=== PATIENT | female | born 1975 | race Caucasian/White ===

== ENCOUNTER 2017-01-02 19:27 | Emergency (ER) | payer OTHER ==
--- NOTE | 2017-01-02 20:08 | ED UPPER/LOWER EXTREMITY COMPL ---
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 PT FELT A POP WITH PAIN RADIATING TO LEFT THUMB Triage Nurses Notes Reviewed? yes Onset: Abrupt Duration: hour(s): (2), constant Timing: recent history Severity: moderate Severity Numbers: 7 Pain/Injury Location: Left: Shoulder. Method of Injury: lifting Modifying Factors: Improves With: rest. Worsens With: movement. Associated Symptoms: none : No Patient currently breastfeeds: No HPI: 41-year-old female with history of left shoulder arthroscopic surgery by Dr. 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 The patient is declining anything for pain offered. She states she is not taken anything for her symptoms at home. The pain is radiating down her arm into her thumb there was no trauma or fall no other injury. She denies any neck or back pain no chest pain or no modifying factors or associated symptoms otherwise. (BENJAMIN JAMES) Past History Travel History Traveled to [place] past 21 day No Medical History Any Pertinent Medical History? see below for history Neurological: NONE EENT: NONE Cardiovascular: HEART MURMUR Respiratory: NONE Gastrointestinal: NONE Hepatic: NONE Renal: NONE Musculoskeletal: NONE Psychiatric: NONE Endocrine: NONE Blood Disorders: NONE Cancer(s): ovarian cancer WOMEN'S ACTIVITIES ADVISER/Reproductive: NONE Tetanus Vaccine: 07/09/13 Surgical History Surgical History: non-contributory Psychosocial History What is your primary language Kenyan Tobacco Use: Never used Family History Hx Contributory? No (BENJAMIN JAMES) Review of Systems Review of Systems Constitutional: Reports: see HPI. All Other Systems: Reviewed and Negative Comments Review of systems: See HPI, All other systems negative. Constitutional, no chills no fever, no malaise HEENT: no sore throat no congestion, no ear pain Cardiovascular: No chest pain , no palpitation Skin, no jaundice no rashes, no change in skin Respiratory: No dyspnea no cough no sputum GI: No nausea no vomiting, no diarrhea : No dysuria Muscle skeletal: joint pain, no back pain, no neck pain, Neurologic: No numbness no headache Psych: No stress Heme/endocrine: No bruising no bleeding Immunology: No lymphadenopathy (BENJAMIN JAMES) Physical Exam Physical Exam General Appearance: well developed/nourished, no apparent distress, alert, awake Comments: Well-developed well-nourished patient in no apparent distress. HEENT: Atraumatic, extraocular motion intact Neck: Supple, FROM, nontender Back: FROM, Nontender Cardiovascular: Regular rate and rhythms no murmurs rubs or gallops, Respiratory: Chest nontender.There were no bony deformities, no asymmetry. No respiratory distress. Patient speaking in full complete sentences. Breath sounds clear to auscultation bilaterally: NO W/R/R Shoulder: Atraumatic/Stable. No obvious deformity, limited range of motion secondary to pain, tender to palpation over the anterior left shoulder no ecchymosis Elbow: Atraumatic/stable. FROM. No laxity Upper arm/Forearm: Atraumatic. Nontender. No edema, 5 out of 5 warm in worker strength noted to bilateral upper extremities Hand/Wrist: Atraumatic/stable. Skin intact. FROM Pulses: Normal/equal radial pulses bilaterally. Brisk cap refill Lower Extremities: full range of motion Neuro: Alert and oriented x3 Skin: Warm & dry;No appreciable rash on exposed skin Psych: Mood affect normal, normal memory normal judgment. (BENJAMIN JAMES) Progress Differential Diagnosis: compartment syndrome, contusion, dislocation, DVT, sprain, tendon injury Plan of Care: Orders Procedure Date/time Status Durable Medical Equipment 01/02 2310 Active Patient declining anything for pain offered she is scheduled to see her orthopedist in 3 days I advised supportive care for rest ice patient is requesting a sling now at this time which was applied by nursing she is declining anything for pain to go home with answered all of her questions she feels comfortable this plan (BENJAMIN JAMES) Diagnostic Imaging: Viewed by Me: Radiology Read. Discussed w/RAD: Radiology Read. Radiology Impression: PATIENT: JAIR POPE PRESENT AGE: 41 PATIENT ACCOUNT NO: [id number] : 74 LOCATION: [facility] ORDERING PHYSICIAN: BENJAMIN BERKOWITZ SERVICE DATE: 01/02/17 EXAM TYPE: RAD - XRY- SHOULDER COMPLETE-LEFT EXAMINATION: XR SHOULDER, LEFT CLINICAL INFORMATION: Status post arthroscopic repair. Removal of clavicle question injury. COMPARISON : None TECHNIQUE: AP external rotation, Grashey, scapular Y, and axillary views of the left shoulder. FINDINGS: There is grade 2 left AC joint separation. There is no glenohumeral fracture, dislocation old loose bodies. There our subtle multiple tiny lucencies seen throughout the left proximal humerus. The soft tissues are normal. IMPRESSION: Grade 2 left AC joint separation versus postoperative changes. There is no acute fracture or glenohumeral dislocation. Incidental finding of tiny lucencies in the left proximal humerus are noted. Correlated with previous exam. DICTATED BY: ALYSHA CARO MD DATE/TIME DICTATED: 01/02/172041 STOCK ROOM MANAGER:RILEY DATE/TIME TRANSCRIBED:01/02/172041 CONFIDENTIAL, DO NOT COPY WITHOUT APPROPRIATE AUTHORIZATION. <Electronically signed in Other Vendor System> SIGNED BY: ALYSHA CARO MD 01/02/172048 (BENJAMIN JAMES) Departure Departure Disposition: HOME OR SELF CARE Condition: Stable Clinical Impression Primary Impression: Shoulder strain Referrals: HARSHAD DEWEY,VAIBHAV RASMUSSEN MD,KEILA Sage (PCP/Family) Additional Instructions: Follow-up with your orthopedist as scheduled on Saturday. Ibuprofen or Tylenol as needed for pain sling for comfort Departure Forms: Customer Survey General Discharge Information (BENJAMIN JAMES) PA/CENSUS TAKER Co-Sign Statement Statement: ED Attending supervision documentation- [X] I saw and evaluated the patient. I have also reviewed all the pertinent lab results and diagnostic results. I agree with the findings and the plan of care as documented in the PA's/CENSUS TAKER's documentation. [X] I have reviewed the ED Record and agree with the PA's/CENSUS TAKER's documentation. [] Additions or exceptions (if any) to the PAs/CENSUS TAKER's note and plan are summarized below: [] (SARAVANAN DEWEY,SANTIAGO)
[2017-01-02 20:13] VITALS: BP 141/64
--- NOTE | 2017-01-02 20:49 | RADIOLOGY REPORT ---
EXAMINATION: XR SHOULDER, LEFT CLINICAL INFORMATION: Status post arthroscopic repair. Removal of clavicle question injury. COMPARISON: None TECHNIQUE: AP external rotation, Grashey, scapular Y, and axillary views of the left shoulder. FINDINGS: There is grade 2 left AC joint separation. There is no glenohumeral fracture, dislocation old loose bodies. There our subtle multiple tiny lucencies seen throughout the left proximal humerus. The soft tissues are normal. IMPRESSION: Grade 2 left AC joint separation versus postoperative changes. There is no acute fracture or glenohumeral dislocation. Incidental finding of tiny lucencies in the left proximal humerus are noted. Correlated with previous exam.
== END 2017-01-02 21:08 ==
LOC: ERH 19:27
DX: S46.912A Strain of unspecified muscle, fascia and tendon at shoulder and upper arm level, left arm, initial encounter (principal); X58.XXXA Exposure to other specified factors, initial encounter; Y93.F2 Activity, caregiving, lifting
CPT/HCPCS: 73030-LT